=== PATIENT | male | born 1985 | race Caucasian/White ===

== ENCOUNTER 2019-04-13 04:25 | Emergency (ER) | payer BC ==
[2019-04-13] MEDS ORDERED: MEPERIDINE HCL 50 MG/ML ONE (05:05)
[2019-04-13] MEDS ORDERED: NA CHLORIDE 0.9% 1,000 ML ONE (05:06)
[2019-04-13] MEDS ORDERED: METOCLOPRAMIDE 10 MG/2mL INJ ONE (05:06)
[2019-04-13] MEDS ORDERED: dexAMETHasone 10 MG/ML VIAL ONE (05:06)
[2019-04-13] MEDS ORDERED: ONDANSETRON 4 MG/2 ML VIAL ONE (05:14)
--- NOTE | 2019-04-13 05:51 | ER ---
Nurse's Notes [facility] Name: Hossein Rivera Age: 33 yrs Sex: Male : 1985 Arrival Date: 04/13/2019 Time: 04:28 Bed 18 Private MD: Diagnosis: Migraine Presentation: 04/13 04:35 Presenting complaint: Patient states: he woke up at 0100 this am with a migraine and aa1 vomiting. Reports hx of migraines and last one was 4 years ago which resolved after receiving "migraine cocktail" at the ER. Transition of care: patient was not received from another setting of care. Onset of symptoms was April 13, 2019 at 01:00. Risk Assessment: Do you want to hurt yourself or someone else? Patient reports no desire to harm self or others. Initial Sepsis Screen: Does the patient meet any 2 criteria? No. Patient's initial sepsis screen is negative. Does the patient have a suspected source of infection? No. Patient's initial sepsis screen is negative. Care prior to arrival: None. 04:35 Method Of Arrival: Ambulatory aa1 04:35 Acuity: JUVENTINO 3 aa1 Triage Assessment: 04:36 Headache History: The patient has had previous headaches and this one is similar to aa1 previous episodes. General: Appears in no apparent distress. uncomfortable, Behavior is calm, cooperative, appropriate for age. 05:51 Pain: Pain at worst was 10 out of 10 on a pain scale. Pain began suddenly, Also jd3 complains of sleeplessness. Historical: - Allergies: 04:36 No Known Allergies; aa1 - Home Meds: 04:36 None [Active]; aa1 - PMHx: 04:36 Migraines; aa1 - PSHx: 04:36 None; aa1 - Immunization history:: Flu vaccine is not up to date. - Social history:: Smoking status: Patient/guardian denies using tobacco. - Ebola Screening: : Patient denies exposure to infectious person Patient denies travel to an Ebola-affected area in the 21 days before illness onset. - Family history:: not pertinent. - Hospitalizations: : No recent hospitalization is reported. Screenin:51 Abuse screen: Denies threats or abuse. Nutritional screening: No deficits noted. jd3 Tuberculosis screening: No symptoms or risk factors identified. Fall Risk Ambulatory Aid- None/Bed Rest/Nurse Assist (0 pts). Gait- Normal/Bed Rest/Wheelchair (0 pts) Mental Status- Oriented to own ability (0 pts). Total Ennis Fall Scale indicates No Risk (0-24 pts). Assessment: 05:00 General: Appears in no apparent distress. uncomfortable, Behavior is calm, cooperative, jd3 appropriate for age. Pain: Complains of pain in head Quality of pain is described as pressure, sharp, squeezing. Neuro: Level of Consciousness is awake, alert, obeys commands, Oriented to person, place, time, situation, Reports headache. Cardiovascular: Denies chest pain, Capillary refill < 3 seconds Patient's skin is warm and dry. Respiratory: Airway is patent Respiratory effort is even, unlabored, Respiratory pattern is regular, symmetrical, Denies cough, shortness of breath. GI: Reports nausea, vomiting. : No signs and/or symptoms were reported regarding the genitourinary system. EENT: No signs and/or symptoms were reported regarding the EENT system. Derm: Skin is intact, Skin is dry, Skin is normal, Skin temperature is warm. Musculoskeletal: Circulation, motion, and sensation intact. Range of motion: intact in all extremities. 05:48 Reassessment: Patient appears in no apparent distress at this time. Patient and/or jd3 family updated on plan of care and expected duration. Pain level reassessed. Patient is alert, oriented x 3, equal unlabored respirations, skin warm/dry/pink. awaiting IV medication infusion to finish before discharge. Patient states feeling better. 06:12 Reassessment: Patient appears in no apparent distress at this time. No changes from jd3 previously documented assessment. Patient and/or family updated on plan of care and expected duration. Pain level reassessed. Patient is alert, oriented x 3, equal unlabored respirations, skin warm/dry/pink. 06:49 Reassessment: Patient appears in no apparent distress at this time. Patient and/or jd3 family updated on plan of care and expected duration. Pain level reassessed. Patient is alert, oriented x 3, equal unlabored respirations, skin warm/dry/pink. reported understanding of discharge instructions. even and steady gait upon discharge. Patient states feeling better. Vital Signs: 04:36 BP 150 / 103; Pulse 79; Resp 16; Temp 98.5; Pulse Ox 99% on R/A; Weight 121.56 kg; aa1 Height 5 ft. 10 in. (177.80 cm); Pain 10/10; 06:11 BP 100 / 54; Pulse 75; Resp 18 S; Pulse Ox 100% on R/A; jd3 04:36 Body Mass Index 38.45 (121.56 kg, 177.80 cm) aa1 [place] Coma Score: 05:46 Eye Response: spontaneous(4). Verbal Response: oriented(5). Motor Response: obeys rn commands(6). Total: 15. ED Course: 04:28 Patient arrived in ED. ds1 04:35 Jabari Cates MD is Attending Physician. rn 04:36 Triage completed. aa1 04:36 Arm band placed on right wrist. aa1 05:00 Inserted saline lock: 20 gauge in right antecubital area, using aseptic technique. jd3 05:48 Red Parson RN is Primary Nurse. jd3 05:51 Patient has correct armband on for positive identification. Bed in low position. Call jd3 light in reach. Side rails up X 1. Adult w/ patient. 06:48 No provider procedures requiring assistance completed. IV discontinued, intact, jd3 bleeding controlled, No redness/swelling at site. Pressure dressing applied. Administered Medications: 05:09 Drug: Reglan 10 mg Route: IVP; Site: right antecubital; jd3 06:00 Follow up: Response: No adverse reaction jd3 05:09 Drug: NS 0.9% 1000 ml Route: IV; Rate: 1000 ml; Site: right antecubital; jd3 06:50 Follow up: Response: No adverse reaction; IV Status: Completed infusion jd3 05:09 Drug: Decadron - Dexamethasone 10 mg Route: IVP; Site: right antecubital; jd3 06:00 Follow up: Response: No adverse reaction jd3 05:09 Drug: Demerol 50 mg Route: IVP; Site: right antecubital; jd3 06:00 Follow up: Response: No adverse reaction; RASS: Alert and Calm (0) jd3 05:16 CANCELLED (Physician Discretion): Demerol 25 mg IVP once; RASS on ADMIN: Combtv4, Very jd3 Agttd3, Agttd2, Rstlss1, AlertClm0, Drwsy-1, Lt Sdtn-2, Mod Sdtn-3, Dp Sdtn-4, UnArsble-5 05:17 Drug: Zofran 4 mg Route: IVP; Site: right antecubital; jd3 06:00 Follow up: Response: No adverse reaction jd3 Outcome: 05:50 Discharge ordered by MD. rn 06:48 Discharged to home ambulatory, with family. jd3 06:48 Condition: stable 06:48 Discharge instructions given to patient, family, Instructed on discharge instructions, follow up and referral plans. Demonstrated understanding of instructions, follow-up care. 06:51 Patient left the ED. jd3 Signatures: Macey Aaron RN RN Ludy Polo ds1 Jabari Cates MD MD rn Davies, Jonathon, RN RN jd3 Corrections: (The following items were deleted from the chart) 05:52 05:48 Reassessment: Patient appears in no apparent distress at this time. Patient jd3 and/or family updated on plan of care and expected duration. Pain level reassessed. Patient is alert, oriented x 3, equal unlabored respirations, skin warm/dry/pink. Patient states feeling better. jd3 06:48 05:00 Inserted saline lock: 22 gauge in right antecubital area, using aseptic jd3 technique. jd3
--- NOTE | 2019-04-13 05:52 | EDPHYS ---
Physician Documentation [facility] Name: Hossein Rivera Age: 33 yrs Sex: Male : 1985 Arrival Date: 04/13/2019 Time: 04:28 Bed 18 Private MD: ED Physician Jabari Cates HPI: 04/13 05:46 This 33 yrs old Male presents to ER via Ambulatory with complaints of rn Headache, Nausea/Vomiting. 05:46 The patient complains of pain to the forehead and right eye. The patient describes the rn headache as aching. Onset: The symptoms/episode began/occurred last night. Severity of symptoms: At its worst the pain was moderate, "similar to past headaches", in the emergency department the pain is unchanged. Headache History: The patient has had previous headaches and this one is similar to previous episodes. The symptoms are alleviated by nothing. the symptoms are aggravated by lights, movement, noise, stress. The patient has experienced similar episodes in the past. The patient has not recently seen a physician. Reports migraine, similar to previous migraines, just worse, gets them monthly to every other week, no trauma, no difference in location, + sensitive to light and sound. . Historical: - Allergies: 04:36 No Known Allergies; aa1 - Home Meds: 04:36 None [Active]; aa1 - PMHx: 04:36 Migraines; aa1 - PSHx: 04:36 None; aa1 - Immunization history:: Flu vaccine is not up to date. - Social history:: Smoking status: Patient/guardian denies using tobacco. - Ebola Screening: : Patient denies exposure to infectious person Patient denies travel to an Ebola-affected area in the 21 days before illness onset. - Family history:: not pertinent. - Hospitalizations: : No recent hospitalization is reported. ROS: 05:46 Constitutional: Negative for fever, chills, and weight loss, Eyes: Negative for injury, rn pain, redness, and discharge, Neck: Negative for injury, pain, and swelling, Cardiovascular: Negative for chest pain, palpitations, and edema, Respiratory: Negative for shortness of breath, cough, wheezing, and pleuritic chest pain, Abdomen/GI: + nausea/vomiting, neg for abd pain MS/Extremity: Negative for injury and deformity, Skin: Negative for injury, rash, and discoloration, Neuro: + headache Exam: 05:46 Constitutional: This is a well developed, well nourished patient who is awake, alert, rn and in no acute distress. Head/Face: Normocephalic, atraumatic. Eyes: Pupils equal round and reactive to light, extra-ocular motions intact. Lids and lashes normal. Conjunctiva and sclera are non-icteric and not injected. Cornea within normal limits. Periorbital areas with no swelling, redness, or edema. Neck: Trachea midline, no thyromegaly or masses palpated, and no cervical lymphadenopathy. Supple, full range of motion without nuchal rigidity, or vertebral point tenderness. No Meningismus. Cardiovascular: Regular rate and rhythm. No pulse deficits. Respiratory: No increased work of breathing, no retractions or nasal flaring. Skin: Warm, dry with normal turgor. Normal color with no rashes, no lesions, and no evidence of cellulitis. MS/ Extremity: Pulses equal, no cyanosis. Neurovascular intact. Full, normal range of motion. Equal circumference. Neuro: Awake and alert, GCS 15, oriented to person, place, time, and situation. Cranial nerves II-XII grossly intact. Motor strength 5/5 in all extremities. Sensory grossly intact. Cerebellar exam normal. Normal gait. Vital Signs: 04:36 BP 150 / 103; Pulse 79; Resp 16; Temp 98.5; Pulse Ox 99% on R/A; Weight 121.56 kg; aa1 Height 5 ft. 10 in. (177.80 cm); Pain 10/10; 06:11 BP 100 / 54; Pulse 75; Resp 18 S; Pulse Ox 100% on R/A; jd3 04:36 Body Mass Index 38.45 (121.56 kg, 177.80 cm) aa1 [place] Coma Score: 05:46 Eye Response: spontaneous(4). Verbal Response: oriented(5). Motor Response: obeys rn commands(6). Total: 15. MDM: 04:35 Patient medically screened. rn 05:46 Differential diagnosis: hypertensive headache, migraine, tension headache, vasomotor rn headache. Data reviewed: vital signs, nurses notes, and as a result, I will discharge patient. Counseling: I had a detailed discussion with the patient and/or guardian regarding: the historical points, exam findings, and any diagnostic results supporting the discharge/admit diagnosis, the need for outpatient follow up, to return to the emergency department if symptoms worsen or persist or if there are any questions or concerns that arise at home. Special discussion: I discussed with the patient/guardian in detail that at this point there is no indication for admission to the hospital. It is understood, however, that if the symptoms persist or worsen the patient needs to return immediately for re-evaluation. ED course: Pt with headache markedly improved, near gone, resting comfortably, no focal findings on exam, similar to previous headaches/migraines, no indication for emergent imaging. . 04/13 04:41 Order name: IV Start; Complete Time: 05:01 rn Administered Medications: 05:09 Drug: Reglan 10 mg Route: IVP; Site: right antecubital; jd3 06:00 Follow up: Response: No adverse reaction jd3 05:09 Drug: NS 0.9% 1000 ml Route: IV; Rate: 1000 ml; Site: right antecubital; jd3 06:50 Follow up: Response: No adverse reaction; IV Status: Completed infusion jd3 05:09 Drug: Decadron - Dexamethasone 10 mg Route: IVP; Site: right antecubital; jd3 06:00 Follow up: Response: No adverse reaction jd3 05:09 Drug: Demerol 50 mg Route: IVP; Site: right antecubital; jd3 06:00 Follow up: Response: No adverse reaction; RASS: Alert and Calm (0) jd3 05:16 CANCELLED (Physician Discretion): Demerol 25 mg IVP once; RASS on ADMIN: Combtv4, Very jd3 Agttd3, Agttd2, Rstlss1, AlertClm0, Drwsy-1, Lt Sdtn-2, Mod Sdtn-3, Dp Sdtn-4, UnArsble-5 05:17 Drug: Zofran 4 mg Route: IVP; Site: right antecubital; jd3 06:00 Follow up: Response: No adverse reaction jd3 Disposition: 04/13/19 05:50 Discharged to Home. Impression: Migraine. - Condition is Stable. - Discharge Instructions: Migraine Headache. - Medication Reconciliation Form, Thank You Letter, Antibiotic Education, Prescription Opioid Use form. - Follow up: Private Physician; When: As needed; Reason: Recheck today's complaints, Re-evaluation by your physician. - Problem is new. - Symptoms have improved. Signatures: Macey Aaron, RN RN aa1 Jabari Cates MD MD rn Davies, Jonathon RN RN jd3 Corrections: (The following items were deleted from the chart) 05:16 04:41 Demerol 25 mg IVP once; RASS on ADMIN: Combtv4, Very Agttd3, Agttd2, Rstlss1, jd3 AlertClm0, Drwsy-1, Lt Sdtn-2, Mod Sdtn-3, Dp Sdtn-4, UnArsble-5 ordered. rn 06:51 05:50 04/13/2019 05:50 Discharged to Home. Impression: Migraine. Condition is Stable. jd3 Forms are Medication Reconciliation Form, Thank You Letter, Antibiotic Education, Prescription Opioid Use. Follow up: Private Physician; When: As needed; Reason: Recheck today's complaints, Re-evaluation by your physician. Problem is new. Symptoms have improved. rn
[2019-04-13 06:56] VITALS: TEMP 98.5
[2019-04-13 06:57] VITALS: BP 100/54; O2SAT 100
== END 2019-04-13 06:51 | disposition home or self-care (01) ==
LOC: ER 04:25
DX: G43.909 Migraine, unspecified, not intractable, without status migrainosus (principal)
CPT/HCPCS: 96361; 96375; 96374; 99283; J2765; J1100; J2175; J7030; J2405

== ENCOUNTER 2019-11-17 09:27 | Emergency (ER) | payer BC ==
--- OUTSIDE RECORDS SUMMARY | 2019-11-17 10:56 | XMS REPORT | Continuity of Care Document ---
:1985 Author Organization [facility] Address [address] [place] [address] Care Team Providers Name Role Phone Unavailable Unavailable Unavailable Problems Condition Condition Condition Status Onset Resolution Last Treating Co mments Source Name Details Category Date Date Treatment Clinician Date Hypertensi Hypertensi Diagnosis Active [facility]ie un[facility]ifie Me moria d type d type l [facility] History of History of Problem Active [facility] seizures [facility] Allergies, Adverse Reactions, Alerts This patient has no known allergies or adverse reactions. Medications Ordered Filled Start Stop Current Ordering Indication Dosage Frequency Signature Comments Components Source Medication Medication Date Date Medication? Clinician (SIG) Name Name Lisinopril Lisinopril 2018-04 Yes Asha [address] [facility] 0-21 [facility] - 00:00: [facility] 00 [facility] ent Clinics Procedures This patient has no known procedures. Encounters Start End Encounter Admission Attending Care Care Encounter Source Date/Time Date/Time Type Type Clinicians Facility Department ID 2019-02-03 2019-02-03 [facility] [id number] [facility] 16:00[facility]00 16[facility]00 [facility] Results Test Description Test Time Test Comments Results Result Sour e Comments CTA CHEST 2016-07-03 [facility] OF 10:20:[address] [id number] IMAGING REPORTPatient Name: CARLITA BUSTAMANTE MDate of Service: [id number]: 31 Sex: M Order #: [id number] Room: ERSDOB: 1985 X-Ray Number: [id number] Record Number: [id number] Hospital Number: [id number] Physician: Harjinder CUMMINS Physician: BRENNAN BENAVIDES CHEST 07/03/2016 10:11 AMHISTORY: chest wall pain . Chest pain. Fever. Leukocytosis.COMPARISON: NoneTECHNIQUE: Contrast-enhanced CT imaging of the chest was performedfollowing intravenous ministration of contrast. Sagittal and coronal MIPreformatted images are provided from the acquired data set.FINDINGS:The central airway is midline and patent. There are patchy groundglassopacities involving the right upper lobe and right lower lobe, reflectingearly multifocal pneumonia. There is mild bilateral dependent atelectasis.There is no pleural effusion or pneumothorax.The heart size is normal. There is no pericardial effusion. The pulmonaryarteries are patent and normal in caliber. There is no pulmonary embolism.There is bilateral gynecomastia. Limited imaging through the upper abdomenreveals diffuse hepatic steatosis. There is a small hiatal hernia. There karissa calcified gallstone within the lumen of the gallbladder.IMPRESSION:1. Early multifocal pneumonia within the right upper and right lower lobes.2. No pulmonary embolus.3. Hepatic steatosis.4. Cholelithiasis.5. Small hiatal hernia.Electronically Signed By: Tereso Parisi M.D., 07/03/2016 10:17 AMLegally authenticated by TEVIN DELANEY 2016-07-03 10:17:45 CHEST 1 VIEW 2016-07-03 [facility] 09:02:[address] [id number] IMAGING REPORTPatient Name: CARLITA BUSTAMANTE MDate of Service: [id number]: 31 Sex: M Order #: [id number] [facility] 1985 X-Ray Number: [id number] Record Number: [id number] Hospital Number: [id number] Physician: Harjinder CUMMINS Physician: MINI BENAVIDES 1 VIEW PORTABLE 07/03/2016 8:38 AM:History: chest wall pain . Chest pain. Dizziness.Comparison: 04/25/2010Technique: 1 view chestFindings:The cardiomediastinal silhouette is normal. The lungs are clear withoutinfiltrate, effusion, or pneumothorax. The bones are intact.Impression:No acute cardiopulmonary process.Electronically Signed By: Tereso Parisi M.D., 07/03/2016 8:59 AMLegally authenticated by TEVIN DELANEY 2016-07-03 08:59:56
[2019-11-17] MEDS ORDERED: PROMETHAZINE 25 MG TABLET ONE (11:03)
[2019-11-17] MEDS ORDERED: KETOROLAC 30 MG/ML INJ ONE (11:03)
[2019-11-17] MEDS ORDERED: HYDROCODONE/APAP 10/325 TAB ONE (11:03)
--- NOTE | 2019-11-17 11:07 | RAD REPORT ---
EXAM DESCRIPTION: RAD - Knee Right 3 View - 11/17/2019 11:00 am CLINICAL HISTORY: Pain;Swelling COMPARISON: No comparisons FINDINGS: No fracture, dislocation or periosteal reaction.No joint effusion seen. No joint space reilly rowing. No air or foreign body in the soft tissues. There is prominent soft tissue swelling anterior to the patella and patella tendon. This appears to be all extra-articular. IMPRESSION: No acute bone or joint finding. Soft tissue swelling anterior to the knee. No foreign body. Clinical concerns for internal derangement or occult bony injury could be further assessed with MR im aging.
--- NOTE | 2019-11-17 11:16 | ER ---
Nurse's Notes [facility] Name: Hossein Rivera Age: 34 yrs Sex: Male : 1985 Arrival Date: 11/17/2019 Time: 09:30 Bed 23 Private MD: Diagnosis: Cellulitis of right lower limb Presentation: 11/16 10:01 Chief complaint: Patient states: R knee swelling, hot and tender to touch. Started this ca1 morning. Denies injury. Coronavirus screen: Client denies travel out of the [place] in the last 14 days. At this time, the client does not indicate any symptoms associated with coronavirus-19. Ebola Screen: Patient negative for fever greater than or equal to 101.5 degrees Fahrenheit, and additional compatible Ebola Virus Disease symptoms Patient denies exposure to infectious person. Patient denies travel to an Ebola-affected area in the 21 days before illness onset. No symptoms or risks identified at this time. Initial Sepsis Screen: Does the patient meet any 2 criteria? No. Patient's initial sepsis screen is negative. Does the patient have a suspected source of infection? No. Patient's initial sepsis screen is negative. Risk Assessment: Do you want to hurt yourself or someone else? Patient reports no desire to harm self or others. Onset of symptoms was November 17, 2019. 10:01 Method Of Arrival: Ambulatory ca1 10:01 Acuity: JUVENTINO 4 ca1 Historical: - Allergies: 10:03 No Known Allergies; ca1 - Home Meds: 10:03 None [Active]; ca1 - PMHx: 10:03 Migraines; ca1 - PSHx: 10:03 None; ca1 - Immunization history:: Adult Immunizations up to date. - Social history:: Smoking status: Patient denies any tobacco usage or history of. Screenin:35 Abuse screen: Denies injuries from another. Nutritional screening: No deficits noted. iw Tuberculosis screening: No symptoms or risk factors identified. Fall Risk None identified. Assessment: 11:14 General: Appears in no apparent distress. Behavior is calm, cooperative. Pain: iw Complains of pain in right knee. Neuro: Level of Consciousness is awake, alert, obeys commands, Oriented to person, place, time, situation, Moves all extremities. Full function. Cardiovascular: Patient's skin is warm and dry. Derm: Skin is intact, is healthy with good turgor. Vital Signs: 10:01 BP 133 / 93; Pulse 93; Resp 15 S; Temp 98.7(O); Pulse Ox 98% on R/A; Weight 117.93 kg ca1 (R); Height 5 ft. 10 in. (177.80 cm) (R); Pain 10/10; 10:01 Body Mass Index 37.31 (117.93 kg, 177.80 cm) ca1 ED Course: 09:30 Patient arrived in ED. as 09:49 Sridevi Kim FNP-C is PHCP. snw 09:49 Simon Byrd MD is Attending Physician. snw 10:03 Triage completed. ca1 10:03 Arm band placed on right wrist. ca1 10:07 Gladys Luo, JUAN is Primary Nurse. iw 11:00 XRAY Knee RIGHT 3 view In Process Unspecified. EDMS 11:15 Patient did not have IV access during this emergency room visit. iw 11:35 Patient has correct armband on for positive identification. iw 11:35 No provider procedures requiring assistance completed. iw Administered Medications: 11:01 Drug: [place] 10 mg-325 mg 1 tabs Route: PO; iw 11:34 Follow up: Response: No adverse reaction; Pain is decreased; RASS: Alert and Calm (0) iw 11:01 Drug: Phenergan 25 mg Route: PO; iw 11:34 Follow up: Response: No adverse reaction iw 11:01 Drug: TORadol 60 mg Route: IM; Site: right deltoid; iw 11:34 Follow up: Response: No adverse reaction iw 11:16 CANCELLED (Other Intervention Used): Clindamycin 600 mg IM once snw 11:33 Drug: Doxycycline 100 mg Route: PO; iw 11:33 Follow up: Response: Medication administered at discharge. 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 Exp: iw 06/05/2022. Lot #: [id number]. } Route: IM; Site: right deltoid; 11:33 Follow up: Response: Medication administered at discharge. iw Outcome: 11:15 Discharge ordered by . snw 11:35 Discharged to home ambulatory. iw 11:35 Condition: stable 11:35 Discharge instructions given to patient, Instructed on discharge instructions, follow up and referral plans. medication usage, Demonstrated understanding of instructions, follow-up care, medications, Prescriptions given X 3. 11:35 Patient left the ED. iw Signatures: Dispatcher [employer] Sridevi Alvarenga, ERIKA-C INDEPENDENT BEAUTY CONSULTANT-Noelle Hart Irene, RN RN iw Ashlee Chance RN RN ca1
--- NOTE | 2019-11-17 11:16 | EDPHYS ---
Physician Documentation [facility] Name: Hossein Rivera Age: 34 yrs Sex: Male : 1985 Arrival Date: 11/17/2019 Time: 09:30 Bed 23 Private MD: ED Physician Simon Byrd HPI: 11/16 10:34 This 34 yrs old Male presents to ER via Ambulatory with complaints of Knee snw Pain. 10:34 Onset: The symptoms/episode began/occurred suddenly, today, and became worse and became snw persistent. The patient has not experienced similar symptoms in the past. The patient has not recently seen a physician. Historical: - Allergies: 10:03 No Known Allergies; ca1 - Home Meds: 10:03 None [Active]; ca1 - PMHx: 10:03 Migraines; ca1 - PSHx: 10:03 None; ca1 - Immunization history:: Adult Immunizations up to date. - Social history:: Smoking status: Patient denies any tobacco usage or history of. ROS: 10:34 Constitutional: Negative for fever, chills, and weight loss, Eyes: Negative for injury, snw pain, redness, and discharge, ENT: Negative for injury, pain, and discharge, Neck: Negative for injury, pain, and swelling, Cardiovascular: Negative for chest pain, palpitations, and edema, Respiratory: Negative for shortness of breath, cough, wheezing, and pleuritic chest pain, Abdomen/GI: Negative for abdominal pain, nausea, vomiting, diarrhea, and constipation, Back: Negative for injury and pain, : Negative for injury, bleeding, discharge, and swelling, Skin: Negative for injury, rash, and discoloration, Neuro: Negative for headache, weakness, numbness, tingling, and seizure, Psych: Negative for depression, anxiety, suicide ideation, homicidal ideation, and hallucinations. 10:34 MS/extremity: Positive for decreased range of motion, pain, swelling, tenderness, warmth. Exam: 10:33 Constitutional: This is a well developed, well nourished patient who is awake, alert, snw and in no acute distress. Head/Face: Normocephalic, atraumatic. Eyes: Pupils equal round and reactive to light, extra-ocular motions intact. Lids and lashes normal. Conjunctiva and sclera are non-icteric and not injected. Cornea within normal limits. Periorbital areas with no swelling, redness, or edema. ENT: Nares patent. No nasal discharge, no septal abnormalities noted. Tympanic membranes are normal and external auditory canals are clear. Oropharynx with no redness, swelling, or masses, exudates, or evidence of obstruction, uvula midline. Mucous membranes moist. Neck: Trachea midline, no thyromegaly or masses palpated, and no cervical lymphadenopathy. Supple, full range of motion without nuchal rigidity, or vertebral point tenderness. No Meningismus. Chest/axilla: Normal chest wall appearance and motion. Nontender with no deformity. No lesions are appreciated. Cardiovascular: Regular rate and rhythm with a normal S1 and S2. No gallops, murmurs, or rubs. Normal PMI, no JVD. No pulse deficits. Respiratory: Lungs have equal breath sounds bilaterally, clear to auscultation and percussion. No rales, rhonchi or wheezes noted. No increased work of breathing, no retractions or nasal flaring. Abdomen/GI: Soft, non-tender, with normal bowel sounds. No distension or tympany. No guarding or rebound. No evidence of tenderness throughout. Back: No spinal tenderness. No costovertebral tenderness. Full range of motion. Neuro: Awake and alert, GCS 15, oriented to person, place, time, and situation. Cranial nerves II-XII grossly intact. Motor strength 5/5 in all extremities. Sensory grossly intact. Cerebellar exam normal. Normal gait. Psych: Awake, alert, with orientation to person, place and time. Behavior, mood, and affect are within normal limits. 10:33 Musculoskeletal/extremity: Extremities: grossly normal except: noted in the right knee: decreased ROM, swelling, tenderness. 10:33 Skin: Appearance: normal except for affected area, cellulitis, that is moderate, well demarcated, on the right knee. Vital Signs: 10:01 BP 133 / 93; Pulse 93; Resp 15 S; Temp 98.7(O); Pulse Ox 98% on R/A; Weight 117.93 kg ca1 (R); Height 5 ft. 10 in. (177.80 cm) (R); Pain 10/10; 10:01 Body Mass Index 37.31 (117.93 kg, 177.80 cm) ca1 MDM: 10:09 Patient medically screened. [facility] 11:16 Data reviewed: vital signs, nurses notes. Data interpreted: Pulse oximetry: on room air snw is 98 %. Interpretation: normal. Counseling: I had a detailed discussion with the patient and/or guardian regarding: the historical points, exam findings, and any diagnostic results supporting the discharge/admit diagnosis, radiology results, the need for outpatient follow up, to return to the emergency department if symptoms worsen or persist or if there are any questions or concerns that arise at home. Special discussion: I have referred the patient to see his PCP for further evaluation of high blood pressure. Based on the history and exam findings, there is no indication for further emergent testing or inpatient evaluation. I discussed with the patient/guardian the need to see the orthopedic surgeon for further evaluation of the symptoms. I discussed with the patient/guardian the need to see the primary care provider for further evaluation of the symptoms. 11/16 10:39 Order name: XRAY Knee RIGHT 3 view; Complete Time: 11:13 snw Administered Medications: 11:01 Drug: [place] 10 mg-325 mg 1 tabs Route: PO; 11:34 Follow up: Response: No adverse reaction; Pain is decreased; RASS: Alert and Calm (0) iw 11:01 Drug: Phenergan 25 mg Route: PO; iw 11:34 Follow up: Response: No adverse reaction 11:01 Drug: TORadol 60 mg Route: IM; Site: right deltoid; iw 11:34 Follow up: Response: No adverse reaction 11:16 CANCELLED (Other Intervention Used): Clindamycin 600 mg IM once snw 11:33 Drug: Doxycycline 100 mg Route: PO; 11:33 Follow up: Response: Medication administered at discharge. 11:33 Drug: Tetanus-Diphtheria Toxoid Adult 0.5 ml {Interior Surface Insulation Worker: CONEXANCE MD. Exp: 06/05/2022. Lot #: [id number]. } Route: IM; Site: right deltoid; 11:33 Follow up: Response: Medication administered at discharge. Disposition: 17:37 Co-signature as Attending Physician, Simon Byrd MD I agree with the assessment and [facility] plan of care. Disposition: 11/17/19 11:15 Discharged to Home. Impression: Cellulitis of right lower limb. - Condition is Stable. - Discharge Instructions: Cellulitis, Adult, Hypertension, VIS, Tetanus, Diphtheria (Td) - [facility], Heat Therapy. - Prescriptions for Ultram 50 mg Oral Tablet - take 1 tablet by ORAL route every 6 hours As needed; 12 tablet. Doxycycline Hyclate 100 mg Oral Tablet - take 1 tablet by ORAL route every 12 hours; 20 tablet. Diclofenac Sodium 75 mg Oral Tablet Sustained Release - take 1 tablet by ORAL route 2 times per day; 30 tablet. - Work release form, Medication Reconciliation Form, Thank You Letter, Antibiotic Education, Prescription Opioid Use form. - Follow up: Emergency Department; When: As needed; Reason: Worsening of condition. Follow up: Private Physician; When: 2 - 3 days; Reason: Recheck today's complaints, Continuance of care, Re-evaluation by your physician. Signatures: Dispatcher [employer] EDMS Simon Byrd MD MD cha Waters, Shelly, [employer] KEEPER HELPER-C [employer] KEEPER HELPER-Csnw Gladys Luo RN RN iw Robson, JUAN Rosado RN ca1 Corrections: (The following items were deleted from the chart) 11:16 11:14 Clindamycin 600 mg IM once ordered. snw snw 11:35 11:15 11/17/2019 11:15 Discharged to Home. Impression: Cellulitis of right lower limb. iw Condition is Stable. Forms are Medication Reconciliation Form, Thank You Letter, Antibiotic Education, Prescription Opioid Use. Follow up: Emergency Department; When: As needed; Reason: Worsening of condition. Follow up: Private Physician; When: 2 - 3 days; Reason: Recheck today's complaints, Continuance of care, Re-evaluation by your physician. snw
[2019-11-17] MEDS ORDERED: TETANUS & DIPHTHERIA TOX,ADULT 0.5 ML VIAL ONE (11:35)
[2019-11-17] MEDS ORDERED: DOXYCYCLINE 100 MG CAP PO ONE (11:35)
[2019-11-17 11:41] VITALS: BP 133/93; TEMP 98.7; O2SAT 98
== END 2019-11-17 11:35 | disposition home or self-care (01) ==
LOC: ER 09:27
DX: L03.115 Cellulitis of right lower limb (principal); Z23 Encounter for immunization
CPT/HCPCS: 90471; 90714; 96372; 99283; Q0169